=== PATIENT | female | born 1940 | race Caucasian/White ===

== ENCOUNTER 2018-02-19 05:30 | Inpatient (IN) | payer MEDICARE, OTHER ==
[2018-02-19] MEDS: LACTATED RINGER'S 1,000 ML IV (06:18)
[2018-02-19] MEDS ORDERED: CLINDAMYCIN 600 MG/D5W (PMX) 50 ML IVPB (07:00)
[2018-02-19] MEDS ORDERED: CLINDAMYCIN 900 MG/50 ML D5W IVPB IVPB (07:00)
[2018-02-19] MEDS ORDERED: FENTAnyl 50 MCG/ML VIAL (08:12)
[2018-02-19] MEDS: TRANEXAMIC ACID 1,000 MG in D5W 100 ML AT INCISION X1 IVPB (08:34)
[2018-02-19] MEDS: BACITRACIN 50000 UNITS INJ IRR (08:52)
[2018-02-19] MEDS: POLYMYXIN B 500000 UNIT INJ (08:52)
[2018-02-19] MEDS ORDERED: HYDROmorphONE (0.2 MG/ML) 10ML SYG IV ×2 (09:00)
[2018-02-19] MEDS ORDERED: FENTAnyl 50 MCG/ML VIAL IV (09:00)
[2018-02-19] MEDS ORDERED: METOCLOPRAMIDE 10 MG INJ IV (09:00)
[2018-02-19] MEDS ORDERED: DIPHENHYDRAMINE 50 MG INJ IV (09:00)
[2018-02-19] MEDS ORDERED: MEPERIDINE 25 MG INJ IV (09:00)
[2018-02-19] MEDS ORDERED: hydrALAzine 20 MG INJ IV (09:00)
[2018-02-19] MEDS ORDERED: LABETALOL HCL 20MG INJ IV (09:00)
[2018-02-19] MEDS ORDERED: SUGAMMADEX SODIUM 200 MG/2 ML VIAL IV (09:50)
[2018-02-19] MEDS ORDERED: LIDOCAINE 100 MG SYRINGE (09:50)
[2018-02-19] MEDS ORDERED: PROPOFOL 20 ML (09:50)
[2018-02-19] MEDS ORDERED: ROCURONIUM 50 MG INJ (09:50)
[2018-02-19] MEDS ORDERED: SUCCINYLCHOLINE CHLORIDE 100 MG/5 ML SYG IV (09:50)
[2018-02-19] MEDS: TRANEXAMIC ACID 1,000 MG in D5W 100 ML AT CLOSURE X1 IVPB (09:51)
[2018-02-19] MEDS ORDERED: NA PHOSPHATE/BIPHOS 133 ML ENEMA PR (10:00)
[2018-02-19] MEDS ORDERED: BISACODYL 10 MG SUPP PR (10:00)
[2018-02-19] MEDS: ONDANSETRON 4 MG INJ IV ×4 (10:00→20:58)
[2018-02-19] MEDS ORDERED: MAGNESIUM HYDROXIDE 30ML CUP PO (10:00)
[2018-02-19] MEDS ORDERED: DIPHENHYDRAMINE 50 MG INJ IM (10:00)
[2018-02-19] MEDS ORDERED: NALOXONE (0.4 MG/ML) INJ IV (10:00)
[2018-02-19] MEDS ORDERED: TRIMETHOBENZAMIDE 100 MG/ML VIAL IM (10:00)
[2018-02-19] MEDS: FENTAnyl 50 MCG/ML VIAL IV ×2 (10:20→10:30)
[2018-02-19] MEDS: HYDROmorphONE (0.2 MG/ML) 10ML SYG IV ×3 (10:45→11:01)
[2018-02-19] MEDS: DOCUSATE SODIUM 100 MG CAP PO (10:45)
[2018-02-19] MEDS: SOD CHLORIDE 0.9% 1,000 ML IV ×3 (10:50→22:20)
[2018-02-19] MEDS ORDERED: ALBUTEROL/IPRATROPIUM (NEB) 3 ML AMP HHN (13:00)
[2018-02-19] MEDS: VANCOMYCIN 1 GM (PMX) 250 ML IVPB (17:22)
[2018-02-19] MEDS: ATORVASTATIN 10 MG TAB PO (20:57)
[2018-02-19] MEDS: GABAPENTIN 100 MG CAP PO (20:58)
[2018-02-20] MEDS: oxyCODONE 5 MG TAB PO ×4 (01:26→21:39)
[2018-02-20] MEDS: ONDANSETRON 4 MG INJ IV (05:32)
[2018-02-20] MEDS: VANCOMYCIN 1 GM (PMX) 250 ML IVPB (05:33)
[2018-02-20] MEDS: FUROSEMIDE 20 MG TAB PO (08:50)
[2018-02-20] MEDS: FERROUS FUMARATE (SR) TAB PO ×2 (08:51→21:43)
[2018-02-20] MEDS: DOCUSATE SODIUM 100 MG CAP PO ×2 (08:53→21:43)
[2018-02-20] MEDS: APIXABAN 5 MG TABLET PO ×2 (08:53→21:43)
[2018-02-20] MEDS: GABAPENTIN 100 MG CAP PO ×2 (09:46→21:43)
[2018-02-20] MEDS: SOD CHLORIDE 0.9% 1,000 ML IV (10:50)
[2018-02-20] MEDS: BETHANECHOL 25 MG TAB PO (11:59)
[2018-02-20 13:11] LABS: ADD MAN DIFF? NO
[2018-02-20 13:28] LABS: INR 1.17; PROTIME 15.1 Sec (11.9-14.9); PT RATIO 1.2
[2018-02-20 13:30] LABS: HEMOGLOBIN A1C 5.2 % (0-5.9)
[2018-02-20 13:36] LABS: CHOLESTEROL 126 mg/dl (100-200)
[2018-02-20 13:36] LABS: CHOL/HDL RATIO 2.6 RATIO; HDL CHOLESTEROL 48 mg/dl (33-92); LDL CHOLESTEROL,CALCULATED 61 mg/dl; TRIGLYCERIDES 83 mg/dl (0-149)
[2018-02-20 13:38] LABS: ANION GAP 11 (8-16); BLOOD UREA NITROGEN 19 mg/dl (7-20); CARBON DIOXIDE 30 mmol/L (21-31); CHLORIDE 105 mmol/L (97-110); CREATININE 0.94 mg/dl (0.44-1.00); GLUCOSE 103 mg/dl (70-220); POTASSIUM 3.3 mmol/L (3.5-5.1); SODIUM 143 mmol/L (135-144)
[2018-02-20 13:53] LABS: WHITE BLOOD COUNT 7.5 10^3/ul (4.8-10.8)
[2018-02-20 13:53] LABS: BASOPHILS % 0.3 % (0.0-2.0); EOSINOPHILS # 0.1 10^3/ul (0.0-0.5); EOSINOPHILS % 1.7 % (0.0-7.0); HEMATOCRIT 30.9 % (37.0-47.0); HEMOGLOBIN 10.1 g/dl (12.0-16.0); LYMPHOCYTES % 13.1 % (15.0-51.0); MEAN CORPUSCULAR HEMOGLOBIN 29.9 pg (29.0-33.0); MEAN CORPUSCULAR HGB CONC 32.7 g/dl (32.0-37.0); MEAN CORPUSCULAR VOLUME 91.4 fl (82.0-101.0); MEAN PLATELET VOLUME 11.1 fl (7.4-10.4); MONOCYTES % 12.7 % (0.0-11.0); NEUTROPHIL # 5.4 10^3/ul (1.6-7.5); NEUTROPHILS % 71.8 % (39.0-77.0); PLATELET COUNT 101 10^3/UL (140-415); RED BLOOD COUNT 3.38 10^6/ul (4.20-5.40); RED CELL DISTRIBUTION WIDTH 14.7 % (11.5-14.5)
[2018-02-20 14:44] LABS: ADD UMIC YES; UR ASCORBIC ACID NEGATIVE (NEGATIVE); UR BILIRUBIN (Dip) NEGATIVE (NEGATIVE); UR BLOOD (Dip) NEGATIVE (NEGATIVE); UR CLARITY SLIGHTLY CLOUDY (CLEAR); UR COLOR YELLOW (YELLOW); UR GLUCOSE (Dip) NEGATIVE (NEGATIVE); UR KETONES (Dip) NEGATIVE (NEGATIVE); UR LEUKOCYTE ESTERASE (Dip) 2+ Leu/ul (NEGATIVE); UR MUCUS FEW /HPF (NONE SEEN); UR NITRITE (Dip) NEGATIVE (NEGATIVE); UR RBC 3 /HPF (0-5); UR SPECIFIC GRAVITY (Dip) 1.015 (1.003-1.030); UR TOTAL PROTEIN (Dip) NEGATIVE (NEGATIVE); UR UROBILINOGEN (Dip) NEGATIVE (NEGATIVE); UR WBC 17 /HPF (0-5)
[2018-02-20 14:46] LABS: UR BACTERIA FEW /HPF (NONE SEEN)
[2018-02-20] MEDS: ATORVASTATIN 10 MG TAB PO (21:43)
[2018-02-21 05:38] LABS: ADD MAN DIFF? NO
[2018-02-21 05:48] LABS: BASOPHILS % 0.2 % (0.0-2.0); EOSINOPHILS # 0.1 10^3/ul (0.0-0.5); EOSINOPHILS % 0.6 % (0.0-7.0); HEMATOCRIT 33.3 % (37.0-47.0); LYMPHOCYTES # 0.8 10^3/ul (0.8-2.9); LYMPHOCYTES % 7.2 % (15.0-51.0); MEAN CORPUSCULAR HEMOGLOBIN 29.9 pg (29.0-33.0); MEAN CORPUSCULAR VOLUME 90.5 fl (82.0-101.0); MONOCYTE # 1.3 10^3/ul (0.3-0.9); NEUTROPHIL # 8.7 10^3/ul (1.6-7.5); NEUTROPHILS % 79.5 % (39.0-77.0); PLATELET COUNT 115 10^3/UL (140-415); RED BLOOD COUNT 3.68 10^6/ul (4.20-5.40); RED CELL DISTRIBUTION WIDTH 14.2 % (11.5-14.5)
[2018-02-21 06:00] LABS: ANION GAP 11 (8-16); BLOOD UREA NITROGEN 14 mg/dl (7-20); CALCIUM 8.1 mg/dl (8.4-10.2); CARBON DIOXIDE 31 mmol/L (21-31); CHLORIDE 103 mmol/L (97-110); CREATININE 0.79 mg/dl (0.44-1.00); GLUCOSE 138 mg/dl (70-220); POTASSIUM 3.1 mmol/L (3.5-5.1); SODIUM 142 mmol/L (135-144)
[2018-02-21] MEDS: SOD CHLORIDE 0.9% 1,000 ML IV ×2 (06:00→11:50)
[2018-02-21] MEDS: PANTOPRAZOLE (EC) 40 MG TAB PO (06:01)
[2018-02-21 06:06] LABS: PROTIME 16.4 Sec (11.9-14.9); PT RATIO 1.3
[2018-02-21 06:07] LABS: PARTIAL THROMBOPLASTIN TIME 31.8 Sec (25.0-35.0)
[2018-02-21] MEDS: GABAPENTIN 100 MG CAP PO (09:00)
[2018-02-21] MEDS: FUROSEMIDE 20 MG TAB PO (09:00)
[2018-02-21] MEDS: FERROUS FUMARATE (SR) TAB PO (09:00)
[2018-02-21] MEDS: DOCUSATE SODIUM 100 MG CAP PO (09:00)
[2018-02-21] MEDS: APIXABAN 5 MG TABLET PO (09:00)
[2018-02-21] MEDS: oxyCODONE 5 MG TAB PO ×2 (09:27→19:31)
[2018-02-21] MEDS: SENNA/DOCUSATE NA (8.6MG/50MG) TAB PO (09:29)
[2018-02-21] MEDS: LEVOFLOXACIN 500 MG TAB PO (15:04)
[2018-02-22] MEDS ORDERED: LEVOFLOXACIN 250 MG TAB PO (06:00)
== END 2018-02-21 20:05 | DRG 470 ==
LOC: REC 05:30 → MS1 11:14
PROC: 0SRD0J9 Replacement of Left Knee Joint with Synthetic Substitute, Cemented, Open Approach (ICD-10-PCS; principal; 2018-02-19 07:30)
DX: M17.12 Unilateral primary osteoarthritis, left knee (principal); N39.0 Urinary tract infection, site not specified; M24.562 Contracture, left knee; I48.91 Unspecified atrial fibrillation; Z79.02 Long term (current) use of antithrombotics/antiplatelets; E78.00 Pure hypercholesterolemia, unspecified; J45.909 Unspecified asthma, uncomplicated; B96.89 Other specified bacterial agents as the cause of diseases classified elsewhere
CPT/HCPCS: 73560; 80048; 80061; 81001; 83036; 84443; 85025; 85610; 85730; 86850; 86900; 86901; 87081; 87086; 88304; 88311; 93306; 97110; 97116; 97162; 97166; 97530